=== PATIENT | male | born 1990 | race Caucasian/White ===

== ENCOUNTER 2018-08-04 12:19 | Observation (INO) | payer BC ==
--- NOTE | 2018-08-04 12:30 | EDPHY ---
H & P Time Seen by Provider: 08/04/18 12:28 HPI/ROS: Chief complaint. Chest pain, low oxygen saturation HPI. 28-year-old male healthy. Presents with 2 day history of cough and crackling in his chest and shortness of breath. Seen at urgent care today and had an O2 saturation 67% on room air. He complains of less chest pain that he describes as tightness and dull. No radiation. Generalized body aches. No unusual leg pain or swelling. No family history of thromboembolic disease. Recent travel to [place]. No fever. No abdominal pain. The patient lives in [place] and came to [place] this past Thursday about to the 5 days ago. He went immediately to [place] to go [place]. ROS 10 systems were reviewed and negative with the exception of the elements mentioned in the history of present illness Past Medical/Surgical History: Healthy Social History: Single, nonsmoker, no alcohol Physical Exam: General Appearance: Alert well-developed male moderate distress vital signs show initial heart rate 110, blood pressure 165/122, O2 saturation room air 84% saturation Eyes: Pupils equal and round no pallor or injection. ENT, Mouth: Mucous membranes are moist. Respiratory: No retractions. Some crackling in the chest. No wheezing or rhonchi audible Cardiovascular: Regular rate and rhythm. Gastrointestinal: Abdomen is soft and nontender, no masses, bowel sounds normal. Neurological: Awake and alert, sensory and motor exams grossly normal. Skin: Warm and dry, no rashes. Musculoskeletal: Neck is supple nontender. Extremities symmetrical, full range of motion. Psychiatric: Patient is oriented X 3, there is no agitation. Constitutional: Initial Vital Signs Temperature (C) 36.8 C 08/04/18 12:29 Heart Rate 110 H 08/04/18 12:29 Respiratory Rate 18 08/04/18 12:29 Blood Pressure 165/122 H 08/04/18 12:29 O2 Sat (%) 84 L 08/04/18 12:29 O2 Delivery Mode Nasal Cannula O2 (L/minute) 5 Allergies/Adverse Reactions: No Known Allergies Allergy (Verified 08/04/18 15:23) Home Medications: Medication Instructions Recorded Albuterol [Proventil Inhaler HFA 1 - 2 puffs IH Q4H PRN 08/04/18 (*)] Azithromycin [Zithromax] 250 mg PO DAILY 08/04/18 guaiFENesin [Mucinex 600 MG (*)] 1,200 mg PO BID 08/04/18 Medical Decision Making - Diagnostics EKG Interpretation: EKG interpreted by me shows sinus tachycardia normal interval and axis. QRS is normal there is ST elevation in anterior leads consistent with probable early repolarization pattern. The rate is 100 Imaging Results: Imaging Impressions Chest X-Ray 08/04/18 10:58 Impression: 1. Bilateral alveolar infiltrates right side greater than left. Consider high altitude pulmonary edema versus bilateral pneumonia. Chest/Thorax CTA 08/04/18 12:36 Impression: 1. Slightly limited study due to respiratory motion. No central or lobar pulmonary embolus. 2. Bilateral patchy groundglass and airspace opacities, favored to represent either multifocal pneumonia if patient has fever or acute high altitude sickness. Findings and recommendations discussed with VIK ODEN at 1541 hour, 2018. Chest x-ray interpreted by me shows significant alveolar infiltrates right worse than left. Pneumonia verses hape CT a shows no evidence for PE Procedures: IV normal saline, oxygen, monitor ED Course/Re-evaluation: Patient remained stable. Patient family and I discussed imaging lab results. We discussed treatment plan including recommendation for admission. They expressed understanding and agreement I consulted discussed case with Dr. Billy Galvez for Pulmonary who sees the patient in the emergency department I consulted discussed case with Dr. Tracy who agrees to the admission Differential Diagnosis: I considered pneumonia, pulmonary embolus. This appears to be high altitude pulmonary edema - Data Points Laboratory Results: Laboratory Results 08/04/18 14:30 08/04/18 14:30 08/04/18 08/04/18 08/04/18 14:30 14:30 14:30 WBC 9.94 10^3/uL H 10^3/uL (3.80-9.50) RBC 4.62 10^6/uL 10^6/uL (4.40-6.38) Hgb 14.2 g/dL g/dL (13.7-17.5) Hct 42.5 % % (40.0-51.0) MCV 92.0 fL fL (81.5-99.8) MCH 30.7 pg pg (27.9-34.1) MCHC 33.4 g/dL g/dL (32.4-36.7) RDW 13.3 % % (11.5-15.2) Plt Count 259 10^3/uL 10^3/uL (150-400) MPV 9.7 fL fL (8.7-11.7) Neut % (Auto) 64.3 % % (39.3-74.2) Lymph % (Auto) 23.2 % % (15.0-45.0) [place] % (Auto) 9.6 % % (4.5-13.0) Eos % (Auto) 2.6 % % (0.6-7.6) Baso % (Auto) 0.1 % L % (0.3-1.7) Nucleat RBC Rel Count 0.0 % % (0.0-0.2) Absolute Neuts (auto) 6.39 10^3/uL 10^3/uL (1.70-6.50) Absolute Lymphs (auto) 2.31 10^3/uL 10^3/uL (1.00-3.00) Absolute Monos (auto) 0.95 10^3/uL H 10^3/uL (0.30-0.80) Absolute Eos (auto) 0.26 10^3/uL 10^3/uL (0.03-0.40) Absolute Basos (auto) 0.01 10^3/uL L 10^3/uL (0.02-0.10) Absolute Nucleated RBC 0.00 10^3/uL 10^3/uL (0-0.01) Immature Gran % 0.2 % % (0.0-1.1) Immature Gran # 0.02 10^3/uL 10^3/uL (0.00-0.10) PT INR D-Dimer Sodium 138 mEq/L mEq/L (135-145) Potassium 4.1 mEq/L mEq/L (3.5-5.2) Chloride 110 mEq/L mEq/L (97-110) Carbon Dioxide 21 mEq/l L mEq/l (22-31) Anion Gap 7 mEq/L mEq/L (6-14) BUN 8 mg/dL mg/dL (7-23) Creatinine 0.8 mg/dL mg/dL (0.7-1.3) Estimated GFR > 60 Glucose 85 mg/dL mg/dL (70-100) Calcium 8.4 mg/dL L mg/dL (8.5-10.4) POC Troponin I NT-Pro-B Natriuret Pep Procalcitonin Pending 08/04/18 08/04/18 08/04/18 12:52 12:45 12:45 WBC RBC Hgb Hct MCV MCH MCHC RDW Plt Count MPV Neut % (Auto) Lymph % (Auto) [place] % (Auto) Eos % (Auto) Baso % (Auto) Nucleat RBC Rel Count Absolute Neuts (auto) Absolute Lymphs (auto) Absolute Monos (auto) Absolute Eos (auto) Absolute Basos (auto) Absolute Nucleated RBC Immature Gran % Immature Gran # PT 14.1 SEC SEC (12.0-15.0) INR 1.07 (0.83-1.16) D-Dimer 0.40 ug/mLFEU ug/mLFEU (0.00-0.50) Sodium REJ Potassium REJ Chloride REJ Carbon Dioxide REJ Anion Gap REJ BUN REJ Creatinine REJ Estimated GFR REJ Glucose REJ Calcium REJ POC Troponin I 0.04 ng/mL ng/mL (0.00-0.08) NT-Pro-B Natriuret Pep REJ Procalcitonin 08/04/18 12:45 WBC REJ RBC TNP Hgb TNP Hct TNP MCV TNP MCH TNP MCHC TNP RDW TNP Plt Count TNP MPV TNP Neut % (Auto) TNP Lymph % (Auto) TNP [place] % (Auto) TNP Eos % (Auto) TNP Baso % (Auto) TNP Nucleat RBC Rel Count TNP Absolute Neuts (auto) TNP Absolute Lymphs (auto) TNP Absolute Monos (auto) TNP Absolute Eos (auto) TNP Absolute Basos (auto) TNP Absolute Nucleated RBC TNP Immature Gran % TNP Immature Gran # TNP PT INR D-Dimer Sodium Potassium Chloride Carbon Dioxide Anion Gap BUN Creatinine Estimated GFR Glucose Calcium POC Troponin I NT-Pro-B Natriuret Pep Procalcitonin Medications Given: Discontinued Medications Sodium Chloride (Ns) 1,000 mls @ 0 mls/hr IV ONCE ONE; Wide Open PRN Reason: Protocol Stop: 08/04/18 12:37 Last Admin: 08/04/18 12:41 Dose: 1,000 mls Nifedipine (Adalat Cc) 30 mg PO ONCE ONE Stop: 08/04/18 15:46 Last Admin: 08/04/18 15:38 Dose: 30 mg Point of Care Test Results: Chemistry 08/04/18 12:52 POC Troponin I 0.04 ng/mL ng/mL (0.00-0.08) Departure - Departure Disposition: [facility] Inpatient Acute Clinical Impression: High altitude pulmonary edema Qualifiers: Encounter type: initial encounter Qualified Code(s): T70.29XA - Other effects of high altitude, initial encounter Condition: Fair
[2018-08-04] MEDS ORDERED: NS 1,000 ML IV ONE (12:36)
[2018-08-04 13:26] LABS: INR 1.07 (0.83-1.16); PROTIME(PATIENT) 14.1 SEC (12.0-15.0)
[2018-08-04] MEDS ORDERED: IOHEXOL 350mgI/ML (OMNIPAQUE) 150 ML BTL IV ONE (14:54)
[2018-08-04 15:03] LABS: PLATELET COUNT 259 10^3/uL (150-400)
[2018-08-04] MEDS ORDERED: ONDANSETRON DISINTEGRATING 4 MG TAB PO PRN (15:06)
[2018-08-04] MEDS ORDERED: ACETAMINOPHEN 325 MG TAB PO PRN (15:06)
[2018-08-04] MEDS ORDERED: ONDANSETRON 4 MG/2 ML VIAL IVP PRN (15:06)
[2018-08-04] MEDS ORDERED: NIFEdipine ER 30 MG TAB PO ONE (15:45)
[2018-08-04] MEDS ORDERED: ALBUTEROL 60 PUFFS/8 GM MDI IH PRN (16:09)
--- NOTE | 2018-08-04 16:09 | CPEKG ---
Test Reason : OPEN Blood Pressure : / mmHG Vent. Rate : 100 BPM Atrial Rate : 100 BPM P-R Int : 145 ms QRS Dur : 099 ms QT Int : 364 ms P-R-T Axes : 043 019 024 degrees QTc Int : 470 ms Sinus tachycardia Probable left atrial enlargement ST elev, probable normal early repol pattern Borderline prolonged QT interval Confirmed by Greg Cage ([id number]) on 08/04/2018 4:09:38 PM Referred By: GERALDINE VALLE Confirmed By:Greg Cage
--- NOTE | 2018-08-04 16:27 | GCON ---
[f rep st] CONSULTATION PULMONARY CONSULTATION DATE OF CONSULTATION: 08/04/2018 REFERRING PHYSICIAN: Chetna Mireles NP HISTORY OF PRESENT ILLNESS: This patient is a 28-year-old male without past medical history, who yakov es in [place], but is currently staying in [place] who travels fairly extensively including recently to [place]. Over the weekend he came back to [place] from [place] and went up to [facility] where he was having a ski weekend. After about 2 days, he developed crackling in his chest and had some cough and shortness of breath. Prior to his visit, he had minor symptoms of upper respiratory infection for which he did not seek medical attention. However, by today he started feeling much wor se. He called his parents who live here in [place] and drove himself down and was seen at an urgent care where his oxygen saturations were in the high 60s. He was subsequently brought to the emergency department. A chest x-ray showed bilateral infiltrates, and he required oxygen. REVIEW OF SYSTEMS: On review of systems, he denies any chest pain or lower extremity edema or weakne ss. He has had no episodes of venous thromboembolic disease in the past. His presumed viral upper r espiratory infection seemed to have settled on its own without any intervention. His cough was large ly nonproductive. There was no purulent sputum, and he had no other known sick contacts. PAST MEDICAL HISTORY: None. PAST SURGICAL HISTORY: None. MEDICATIONS: At this time include only Zofran. He is getting Lovenox, and he did get 1 dose of nife dipine oral 30 mg at 3:45 p.m. in the emergency department. PHYSICAL EXAMINATION: VITAL SIGNS: He was afebrile with a blood pressure most recently of 152/103, heart rate of 99, respirations 20, oxygen saturation 93% on 6 L. GENERAL APPEARANCE: He was healthy -appearing, awake and alert, in no apparent distress and able to speak in full sentences without usin g accessory muscles for breathing. HEENT: Pupils are equally round and reactive. He was nonicteric . Mucous membranes were moist. NECK: Supple, without adenopathy. CHEST: Breath sounds were coars e bilaterally, worse on the right than the left without wheezing. HEART: Regular rate and rhythm. ABDOMEN: Soft, nontender, nondistended without hepatosplenomegaly. EXTREMITIES: No clubbing, cyano sis, or edema. OBJECTIVE DATA: Includes his chest x-ray as described above. In addition, his CT scan showing diffu se bilateral fluffy infiltrates consistent with pulmonary edema. His white count was 9.9, hematocrit 42, platelets 259. INR 1.07. Sodium at point of care was 144, potassium 3.7, chloride 109, bicarb 21, BUN 5, creatinine 0.8. Troponin negative. BNP pending. Procalcitonin pending. ASSESSMENT AND PLAN: Severe hypoxia with infiltrates. I think this is most consistent with high alt itude pulmonary edema given his rapid ascent and preceding viral illness. He has been treated with n ifedipine at this point, which is reasonable and oxygen. I do not feel that diuretics are needed at this moment and simple oxygen therapy and descent are the main stays at this time. A tox screen is s ent as well, though my suspicion is low, as well as the procalcitonin, I would not give him antibioti cs currently and monitor his progress. If the high altitude pulmonary edema diagnosis is in fact cor rect, he should improve his oxygen requirements within the next 12-24 hours. I had a thorough discus boris with the patient and his family over this issue and all agreed with our plan moving forward. /[id number]/MODL
--- NOTE | 2018-08-04 17:14 | HOSPPROG ---
Hospitalist Progress Note Assessment/Plan: I have personally seen and evaluated Tung Reece. I agree with the assessment and plan as outlined in separate note by Yolette Espino. Objective: Vital Signs Temp Pulse Resp BP Pulse Ox 36.9 C 100 20 159/112 H 90 L 08/04/18 16:18 08/04/18 16:18 08/04/18 15:50 08/04/18 16:18 08/04/18 16:18 08/03/18 08/04/18 08/05/18 05:59 05:59 05:59 Intake Total 1250 Balance 1250 PT 14.1 SEC (12.0-15.0) 08/04/18 12:45 INR 1.07 (0.83-1.16) 08/04/18 12:45 ICD10 Worksheet Patient Problems: Problems Problem Status Onset High altitude pulmonary edema Acute
--- NOTE | 2018-08-04 17:41 | PDGENHP ---
History and Physical - Chief Complaint Shortness of breath - History of Present Illness HPI: This is a healthy 28 y/o male presenting to the ER with c/o shortness of breath and oxygen saturation in the 60s on room air. He was in [place] for 2 weeks, flew back to [place] (where he currently resides) and immediately flew to [place] where he went [place] into the mountains to ski. He was at [facility]. He reports he was recovering from a recent URI but for the last 2 days, felt like "I had a bad hangover." He reports he has a productive cough with green sputum and felt short of breath with simple activity like walking up a flight of stairs or just walking around. Denies chest pains, palpitations, vomiting or fevers. Most likely HAPE (High Altitude Pulmonary Edema). Past Medical History: Negative Past Surgical History: Right ulna hardware removal (2012) Social: Denies tobacco or illicit drug use. Drinks occasionally. Used to live in [place], moved to [place] 2 years ago. Parents still reside here and were at bedside with pt. History Information - Allergies/Home Medication List Allergies/Adverse Reactions: No Known Allergies Allergy (Verified 08/04/18 15:23) Home Medications: Albuterol [Proventil Inhaler HFA (*)] 1 - 2 puffs IH Q4H PRN 08/04/18 [Last Taken 08/04/18] Azithromycin [Zithromax] 250 mg PO DAILY 08/04/18 [Last Taken 08/04/18] guaiFENesin [Mucinex 600 MG (*)] 1,200 mg PO BID 08/04/18 [Last Taken 08/04/18] I have personally reviewed and updated: family history, medical history, social history, surgical history Past Medical History: See HPI list - Surgical History Additional surgical history: See HPI list - Family History Positive for: non-pertinent - Social History Smoking Status: Never smoked Alcohol Use: Occasionally Drug Use: None Review of Systems Review of Systems: ROS: 10pt was reviewed & negative except for what was stated in HPI & below Physical Exam Physical Exam: Lab data and imaging were reviewed. Case discussed with admitting physician, Dr. Jairo Tracy. D-Dimer: 0.40 WBC: 9.94 Procalcitonin: 0.14 EKG: Sinus tach, possible left atrial enlargement Chest CTA: Bilateral patchy groundglass and airspace opacities, consider multifocal PNA. R > L side Temp Pulse Resp BP Pulse Ox 36.9 C 100 20 159/112 H 90 L 08/04/18 16:18 08/04/18 16:18 08/04/18 15:50 08/04/18 16:18 08/04/18 16:18 O2 (L/minute) 3 Constitutional: appears nourished, not in pain, other (Pleasant and cooperative pt who appears to be mildly distressed however able to complete full sentences) Eyes: PERRL, anicteric sclera, EOMI Ears, Nose, Mouth, Throat: moist mucous membranes, hearing normal, ears appear normal, no oral mucosal ulcers Cardiovascular: regular rate and rhythym, no murmur, rub, or gallop, tachycardia , No edema Peripheral Pulses: 2+: dorsalis-pedis (R) (Radial 2+), dorsalis-pedis (L) ( Radial 2+) Respiratory: reduced air movement, rhonchi Gastrointestinal: normoactive bowel sounds, soft, non-tender abdomen, no palpable masses Genitourinary: no bladder fullness, no bladder tenderness Skin: warm, normal color, no rashes or abrasions, no fluctuance, no induration, No mottled Musculoskeletal: full muscle strength, no muscle tenderness, normal joint ROM, no joint effusions Neurologic: AAOx3, sensation intact bilaterally, CN II-XII Intact Psychiatric: interacting appropriately, not anxious, not encephalopathic, thought process linear Lymph, Heme, Immunologic: no cervical LAD, no supraclavicular LAD Lab Data & Imaging Review 08/04/18 14:30 08/04/18 14:30 WBC 9.94 10^3/uL (3.80-9.50) H 08/04/18 14:30 RBC 4.62 10^6/uL (4.40-6.38) 08/04/18 14:30 Hgb 14.2 g/dL (13.7-17.5) 08/04/18 14:30 POC Hgb 13.6 gm/dL (13.7-17.5) L 08/04/18 14:53 Hct 42.5 % (40.0-51.0) 08/04/18 14:30 POC Hct 40 % (40-51) 08/04/18 14:53 MCV 92.0 fL (81.5-99.8) 08/04/18 14:30 MCH 30.7 pg (27.9-34.1) 08/04/18 14:30 MCHC 33.4 g/dL (32.4-36.7) 08/04/18 14:30 RDW 13.3 % (11.5-15.2) 08/04/18 14:30 Plt Count 259 10^3/uL (150-400) 08/04/18 14:30 MPV 9.7 fL (8.7-11.7) 08/04/18 14:30 Neut % (Auto) 64.3 % (39.3-74.2) 08/04/18 14:30 Lymph % (Auto) 23.2 % (15.0-45.0) 08/04/18 14:30 [place] % (Auto) 9.6 % (4.5-13.0) 08/04/18 14:30 Eos % (Auto) 2.6 % (0.6-7.6) 08/04/18 14:30 Baso % (Auto) 0.1 % (0.3-1.7) L 08/04/18 14:30 Nucleat RBC Rel Count 0.0 % (0.0-0.2) 08/04/18 14:30 Absolute Neuts (auto) 6.39 10^3/uL (1.70-6.50) 08/04/18 14:30 Absolute Lymphs (auto) 2.31 10^3/uL (1.00-3.00) 08/04/18 14:30 Absolute Monos (auto) 0.95 10^3/uL (0.30-0.80) H 08/04/18 14:30 Absolute Eos (auto) 0.26 10^3/uL (0.03-0.40) 08/04/18 14:30 Absolute Basos (auto) 0.01 10^3/uL (0.02-0.10) L 08/04/18 14:30 Absolute Nucleated RBC 0.00 10^3/uL (0-0.01) 08/04/18 14:30 Immature Gran % 0.2 % (0.0-1.1) 08/04/18 14:30 Immature Gran # 0.02 10^3/uL (0.00-0.10) 08/04/18 14:30 PT 14.1 SEC (12.0-15.0) 08/04/18 12:45 INR 1.07 (0.83-1.16) 08/04/18 12:45 D-Dimer 0.40 ug/mLFEU (0.00-0.50) 08/04/18 12:45 POC Sodium 144 mEq/L (135-145) 08/04/18 14:53 Sodium 138 mEq/L (135-145) 08/04/18 14:30 POC Potassium 3.7 mEq/L (3.3-5.0) 08/04/18 14:53 Potassium 4.1 mEq/L (3.5-5.2) 08/04/18 14:30 POC Chloride 109 mEq/L (97-110) 08/04/18 14:53 Chloride 110 mEq/L (97-110) 08/04/18 14:30 Carbon Dioxide 21 mEq/l (22-31) L 08/04/18 14:30 POC Total CO2 21 mEq/L (22-31) L 08/04/18 14:53 Anion Gap 7 mEq/L (6-14) 08/04/18 14:30 POC BUN 5 mg/dL (7-23) L 08/04/18 14:53 BUN 8 mg/dL (7-23) 08/04/18 14:30 Creatinine 0.8 mg/dL (0.7-1.3) 08/04/18 14:30 POC Creatinine 0.8 mg/dL (0.7-1.3) 08/04/18 14:53 Estimated GFR > 60 08/04/18 14:30 Glucose 85 mg/dL (70-100) 08/04/18 14:30 POC Glucose 85 mg/dL (70-100) 08/04/18 14:53 Calcium 8.4 mg/dL (8.5-10.4) L 08/04/18 14:30 POC Troponin I 0.04 ng/mL (0.00-0.08) 08/04/18 12:52 NT-Pro-B Natriuret Pep REJ 08/04/18 12:45 Procalcitonin 0.14 ng/mL (0.02-0.10) H 08/04/18 14:30 Assessment & Plan Plan: A: This is a 28 y/o male with no PMH presenting with 2 days worth of shortness of breath, hypoxia on RA, productive cough, and general feeling of malaise. With his recent travel immediately to [facility] and skiing [place], he has not had the time to adjust to the altitude hence him experiencing a more serious form of acute mountain sickness which is high altitude pulmonary edema. He received 1L NS and Nifedipine in ED and Dr. Billy Galvez (parole or probation officer) evaluated him while in ED. The pt arrived to ED requiring 5L NC and now is down to 2L NC and reportedly "feeling alot better." P: -He is on day 3 of 5 of his z-demetri. Will continue this. -Possible PNA. Procalcitonin was mildly elevated 0.14. He is afebrile. Will not give IV abx right now. If he does not improve by AM, consider IV abx. -Cont pulse ox monitoring -Nifedipine 30 mg BID -Respiratory pathogen panel pending -Drug tox screen pending -CBC/BMP in AM Diet: Regular Code: Full VTE ppx: SCDs, Lovenox subq Dispo: Admit to obs
[2018-08-04] MEDS: NIFEdipine ER 30 MG TAB PO SCH (21:45)
[2018-08-05 05:46] LABS: PLATELET COUNT 284 10^3/uL (150-400)
[2018-08-05] MEDS: NIFEdipine ER 30 MG TAB PO SCH (08:48)
[2018-08-05] MEDS ORDERED: AZITHROMYCIN 250 MG TAB PO SCH (09:00)
[2018-08-05] MEDS ORDERED: ENOXAPARIN 40 MG/0.4 ML SYR SC SCH (09:00)
[2018-08-05] MEDS ORDERED: CANN-EASE 2 GM TUBE TP PRN (12:09)
--- NOTE | 2018-08-05 14:21 | ASMTCMCOM ---
CM Note CM Note Notes: Pt admitted to hospital for high altitude pulmonary edema after flying from [place] to [place] and went straight [place]. Parents reside in [place], d/w [employer] E[employer]IENT [employer] DES[employer] anticipate pt will dc home when medically stable. CM available for any changes. DC Plan: Independent Date Signed: 08/05/2018 02:21 PM Electronically Signed By:Vonnie Francisco RN
--- NOTE | 2018-08-05 14:55 | HOSPPROG ---
Hospitalist Progress Note Assessment/Plan: 28y male with c/o SOB and fatigue. First encounter, chart reviewed. # High altitude pulmonary edema. -He received 1L NS -Nifedipine in ED -Dr. Billy Galvez (technical support assistant) consulted. -pt arrived to ED requiring 5L NC now down to 2L NC -"feeling alot better." #Possible PNA -day 4 of 5 of his z-demetri. Will continue this. -Procalcitonin was mildly elevated 0.14. -He is afebrile. -Cont pulse ox monitoring -Nifedipine 30 mg BID -Respiratory pathogen panel negative -Drug tox screen negative Diet: Regular Code: Full VTE ppx: SCDs, Lovenox subq Dispo: change to inpt status still requiring meds and O2 Subjective: Feeling much better. Still coughing. Objective: Vital Signs Temp Pulse Resp BP Pulse Ox 36.9 C 108 H 15 163/99 H 90 L 08/05/18 11:09 08/05/18 11:24 08/05/18 11:24 08/05/18 11:09 08/05/18 11:24 Microbiology 08/04/18 18:43 Respiratory Panel (PCR) - Final Nasal, Sinus - Swab No Organism Detected By Pcr Laboratory Results 08/05/18 04:37 08/05/18 04:37 08/04/18 08/05/18 08/06/18 05:59 05:59 05:59 Intake Total 2380 Balance 2380 PT 14.1 SEC (12.0-15.0) 08/04/18 12:45 INR 1.07 (0.83-1.16) 08/04/18 12:45 - Physical Exam Constitutional: no apparent distress, appears nourished, not in pain Eyes: PERRL, anicteric sclera, EOMI Ears, Nose, Mouth, Throat: moist mucous membranes, hearing normal, ears appear normal Cardiovascular: regular rate and rhythym, tachycardia, No JVD, No edema Respiratory: no respiratory distress, reduced air movement, rhonchi Gastrointestinal: normoactive bowel sounds, No tenderness, No ascites, No nickerson 's sign Skin: warm, normal color, mottled Musculoskeletal: normal joint ROM, no joint effusions, generalized weakness Neurologic: AAOx3 Psychiatric: interacting appropriately, not anxious, not encephalopathic ICD10 Worksheet Patient Problems: Problems Problem Status Onset High altitude pulmonary edema Acute
--- NOTE | 2018-08-05 15:02 | PDINTPN ---
Cab Station Attendant Progress Note Assessment/Plan: 28 M s/p recent rapid ascent to altitude associated with symptoms of AMS and dyspnea, found to have significant hypoxemia even after coming to [place]. * HAPE clinically fits well. Treatment is primarily oxygen support and descent with nifedipine as adjunct particularly when descent is not possible. Can dc nifedipine now. No clear indication at this point for future prophylaxis either since this is his first episode. Normal wbc without antibiotics and very low procalcitonin make bacterial infection highly unlikely. * [place] for dc. * discussed with patient and Mom in detail. Subjective: stable overnight and feels back to baseline Objective: Vital Signs Temp Pulse Resp BP Pulse Ox 36.9 C 108 H 15 163/99 H 90 L 08/05/18 11:09 08/05/18 11:24 08/05/18 11:24 08/05/18 11:09 08/05/18 11:24 Microbiology 08/04/18 18:43 Respiratory Panel (PCR) - Final Nasal, Sinus - Swab No Organism Detected By Pcr Laboratory Results 08/05/18 04:37 08/05/18 04:37 08/04/18 08/05/18 08/06/18 05:59 05:59 05:59 Intake Total 2380 Balance 2380 PT 14.1 SEC (12.0-15.0) 08/04/18 12:45 INR 1.07 (0.83-1.16) 08/04/18 12:45 Physical Exam - Physical Exam General Appearance: WD/WN, alert, no apparent distress EENT: PERRL/EOMI Neck: supple Respiratory: lungs clear, normal breath sounds, No respiratory distress, No accessory muscle use, No crackles, No rales, No wheezing Cardiac/Chest: regular rate, rhythm, No edema, No JVD Abdomen: non-tender, soft, No distended Skin: normal color, warm/dry, No cyanosis Lymphatic: no adenopathy Extremities: No pedal edema Neuro/Psych: alert, normal mood/affect, oriented x 3 ICD10 Worksheet Patient Problems: Problems Problem Status Onset High altitude pulmonary edema Acute
[2018-08-05 15:30] VITALS: BP 135/85
--- NOTE | 2018-08-06 08:47 | GDS ---
[f rep st] DISCHARGE SUMMARY DISCHARGE DIAGNOSIS: High-altitude pulmonary edema. CONSULTATIONS: During this hospitalization: Dr. Billy Galvez of Pulmonology. STUDIES AND PROCEDURES DONE: 1. CT angio of the chest. 2. Chest x-ray. HOSPITAL COURSE: The patient is a 28-year-old male who presented to the hospital with complaints of shortness of breath and acute hypoxia. He was evaluated and diagnosed with high altitude pulmonary e tamiko. During this hospitalization, he was treated with oxygen supplementation, as well as nifedipine . His condition has completely resolved. He has returned to baseline and he will be discharged home . FOLLOWUP: Followup will be in the outpatient setting with his primary care physician. PENDING STUDIES: There are no pending studies. DISCHARGE MEDICATIONS: Please refer to EMR form. I have not provided any prescriptions for the inocencio ent at the time of disposition. /[id number]/MODL
== END 2018-08-05 16:51 | disposition home or self-care (01) ==
LOC: EDSTATUS 12:19 → INTOOBSV 14:39 → F3E 16:11
PROVIDERS: ADMIT Internal Medicine; ATTEND Internal Medicine
DX: T70.29XA Other effects of high altitude, initial encounter (principal); E86.9 Volume depletion, unspecified; W94.11XA Exposure to residence or prolonged visit at high altitude, initial encounter; Y99.9 Unspecified external cause status
CPT/HCPCS: 71046; 71275; 93005; 96360; 96372; 99285; G0378; 80307; 82435-PO; 82565-PO; 82947-PO; 84132-PO; 84295-PO; 84484-ER; 84520-PO; 85014-ER; G0480; J1650; Q9967